=== PATIENT | male | born 1965 | race Caucasian/White ===

== ENCOUNTER 2021-12-15 13:21 | Emergency (ER) | payer BC ==
[~2021-12-15] VITALS: Ht 190.5 cm; Wt 148.1 kg
[~2021-12-15 13:21] MED LIST: DULO60CA7 PO
[2021-12-15 14:01] VITALS: BP 158/85
[2021-12-15 14:51] LABS: CLARITY,URINE CLEAR; COLOR,URINE YELLOW; GLUCOSE,URINE NEG (NEG); NITRITE,URINE NEG (NEG); UROBILINOGEN,URINE 0.2 mg/dL (0.2 mg/dL)
[2021-12-15 14:52] LABS: BACTERIA,URINE FEW /HPF (0-FEW); RBC,URINE >40 /HPF (0-2); SQUAMOUS EPITHELIAL CELL,UR OCC /LPF
[2021-12-15] MEDS ORDERED: CEPH500T PO (15:32)
--- NOTE | 2021-12-15 15:32 | PHYS DOC ---
Past History Past Medical History: Anxiety, Depression Past Surgical History: Other Additional Past Surgical Histo: hernia repair Smoking: Chew Alcohol Use: None Drug Use: None General Adult EDM: Chief Complaint: BLOOD IN URINE HPI: HPI: Patient is a 56-year-old male who presents emergency department with complaints of having blood in his urine today and pain with urination since yesterday. Patient states it feels just like it is when he has urinary tract infections. Patient denies any pain in his back or abdomen. He denies any irregular penile discharge, difficulty voiding, or foul-smelling urine. Patient denies any fever, cough, body aches, fatigue, testicular pain, nausea, vomiting, or diarrhea. He currently denies any pain. Patient states he did take some Azo yesterday with some relief of the dysuria but continues to report pain today. Review of Systems: Review of Systems: Complete ROS is negative unless otherwise noted in the HPI. Allergies: Allergies: Allergies Coded Allergies Type Severity Reaction Last Updated Verified No Known Drug Allergies 07/22/13 No Physical Exam: PE: See above Constitutional: Well developed, well nourished, no acute distress, non-toxic appearance. [] HENT: Normocephalic, atraumatic, bilateral external ears normal, nose normal. [] Eyes: PERRLA, EOMI, conjunctiva normal, no discharge. [] Neck: Normal range of motion, no stridor. [] Cardiovascular:Heart rate regular rhythm Lungs & Thorax: Respirations even and unlabored, no retractions, no respiratory distress Abdomen: soft, no tenderness, no rebound tenderness, guarding Back: No CVA tenderness Skin: Warm, dry, no erythema, no rash. [] Extremities: No cyanosis, ROM intact, no edema. [] Neurologic: Alert and oriented X 3, no focal deficits noted. [] Psychologic: Affect normal, judgement normal, mood normal. [] Current Patient Data: Labs: Laboratory Tests Test 12/15/21 13:27 Urine Collection Type Clean catch Urine Color Yellow Urine Clarity Clear Urine pH 7.0 Urine Specific [place] 1.020 Urine Protein >100 mg/dl (NEG-TRACE) Urine Glucose (UA) Neg mg/dL (NEG) Urine Ketones (Stick) Neg mg/dL (NEG) Urine Blood Large (NEG) Urine Nitrite Neg (NEG) Urine Bilirubin Neg (NEG) Urine Urobilinogen Dipstick 0.2 mg/dL (0.2 mg/dL) Urine Leukocyte Esterase Trace (NEG) Urine RBC >40 /HPF (0-2) Urine WBC 1-4 /HPF (0-4) Urine Squamous Epithelial Cells Occ /LPF Urine Bacteria Few /HPF (0-FEW) Vital Signs: Vital Signs Date Time Temp Pulse Resp B/P (MAP) Pulse Ox O2 Delivery O2 Flow Rate FiO2 12/15/21 14:01 158/85 (109) 12/15/21 13:35 98.2 90 16 96 Room Air EKG: EKG: [] Radiology/Procedures: Radiology/Procedures: [] Heart Score: C/O Chest Pain: No Course & Med Decision Making: Course & Med Decision Making Pertinent Labs and Imaging studies reviewed. (See chart for details) 56-year-old male presents emergency department with reports of hematuria and dysuria patient reports it feels just like it does when he has urinary tract infections. Urinalysis was performed and revealed a large amount of blood with greater than 50 red blood cells, 1-4 white blood cells, and few bacteria. I advised the patient that his symptoms may also be caused by a kidney stone and recommended further work-up for kidney stone. Patient states he knows that it is a urinary tract infection and declines further work-up for possible stone. Will prescribe patient Keflex to take 4 times a day for the next 7 days. Recommended that patient return to the ER if symptoms worsen or he develops difficulty voiding or fever. Patient verbalized an understanding of home care, medications, follow-up, and return to ED instructions and was in agreement with the plan of care. [] Dragon Disclaimer: Dragon Disclaimer: This electronic medical record was generated, in whole or in part, using a voice recognition dictation system. Departure Departure: Impression: Primary Impression: UTI (urinary tract infection) Qualified Codes: N39.0 - Urinary tract infection, site not specified; R31.9 - Hematuria, unspecified Disposition: 01 HOME / SELF CARE / HOMELESS Condition: STABLE Referrals: CARRIE FAULKNER (PCP) Patient Instructions: Hematuria-Brief, Urinary Tract Infection, [id number] Additional Instructions: Fill prescription(s) and take as directed. Avoid bladder irritants such as caffeine, carbonation, and spicy foods. Increase clear fluids. Follow up with your primary care doctor in 1-2 days, return to the ER if symptoms worsen or fever develops. Scripts Cephalexin (CEPHALEXIN) 500 Mg Tablet 1 TAB PO QID for infection for 7 Days, #28 TAB 0 Refills Prov: TOMASA FRANK APRN 12/15/21 TOMASA FRANK APRN December 15, 2021 15:32
== END 2021-12-15 15:38 | disposition home or self-care (01) ==
LOC: ER 13:21
DX: N39.0 Urinary tract infection, site not specified (principal); R31.9 Hematuria, unspecified; F17.220 Nicotine dependence, chewing tobacco, uncomplicated
CPT/HCPCS: 81001; 87086; 99283